=== PATIENT | female | born 1975 | race Caucasian/White ===

== ENCOUNTER → 2020-09-27 | Outpatient (CLI) | payer MEDICARE, OTHER ==
--- NOTE | 2020-09-27 17:14 | RAD ---
EXAM: Lumbar spine CT without contrast. HISTORY: Pain. TECHNIQUE: Computed tomographic images of the lumbar spine were obtained without contrast. Multiplana r reformatting was performed. *One or more of the following individualized dose reduction techniques were utilized for this examina tion: 1. Automated exposure control. 2. Adjustment of the mA and/or kV according to patient size. 3. Use of iterative reconstruction technique. COMPARISON: None. FINDINGS: There is slight retrolisthesis of L3 on L4, L4 on L5 and L5 on S1. There is multilevel endp late remodeling. There is a superior endplate Schmorl's node at L3. There is no fracture or suspiciou s osseous lesion. There is a small amount of calcification within the disc space at L1-L2, and to a l leigha extent, L2-L3 and T12-L1. Evaluation of the visualized lungs is unremarkable. There are multipl e left greater than right renal cysts. The largest cyst measures at least 5.2 cm on the left and is p artially excluded from the [id number]. These are simple in appearance. There is mild degenerative subchondral cyst formation involving the right sacroiliac joint. There is vacuum phenomenon involving the sacroiliac joints. There is a small sclerotic lesion within the right sacrum likely due to a [place]. At L1-L2, there is no stenosis. At L2-L3, there is no stenosis. At L3-L4, there is a disc bulge. There is slight retrolisthesis. There is mild left facet arthropathy . There is mild central canal stenosis. At L4-L5, there is a right foraminal disc protrusion with 5 mm superior extrusion superimposed on a d isc bulge and endplate remodeling. There is mild bilateral facet arthropathy. There is slight retroli sthesis. There is mild right foraminal stenosis with abutment the exiting right L4 nerve root. There is moderate central canal stenosis. At L5-S1, there is a disc bulge. There is slight retrolisthesis There is no stenosis. IMPRESSION: 1. L4-L5: Right foraminal disc protrusion and superior extrusion superimposed on a disc bulge, result ing in mild right foraminal stenosis and abutment the exiting right L4 nerve root and moderate centra l canal stenosis. 2. L3-L4: Disc bulge contributing to mild central canal stenosis. 3. Multiple left greater than right renal cysts. These are simple in appearance. The largest cyst on the left is partially excluded from the [id number]. Follow up is not routinely performed for simpl e cysts. Electronically signed by: Nighat Anton MD (09/27/2020 5:12 PM) [facility]
== END ==
LOC: CT 12:51
PROVIDERS: ATTEND Family Medicine
DX: M51.26 Other intervertebral disc displacement, lumbar region (principal); M48.061 Spinal stenosis, lumbar region without neurogenic claudication; M47.816 Spondylosis without myelopathy or radiculopathy, lumbar region; M43.17 Spondylolisthesis, lumbosacral region; M51.46 Schmorl's nodes, lumbar region; M53.85 Other specified dorsopathies, thoracolumbar region; R29.898 Other symptoms and signs involving the musculoskeletal system; R29.818 Other symptoms and signs involving the nervous system; N28.1 Cyst of kidney, acquired; R15.9 Full incontinence of feces; R20.0 Anesthesia of skin
CPT/HCPCS: 72131